=== PATIENT | female | born 1990 | race Caucasian/White ===

== ENCOUNTER 2020-06-18 12:49 | Emergency (ER) | payer BC, SELFPAY ==
[2020-06-18 13:10] VITALS: BP 134/81; PULSE 62; RESP 20; TEMP 36.6; O2SAT 97; BMI 56.7
--- NOTE | 2020-06-18 13:26 | HMH.EDUTC ---
[facility] [place] Clinical Impression: Exposure to COVID-19 virus Disposition: Home, Self-Care Condition on Discharge: Good Instructions: DI for COVID-19 (Suspected or Confirmed ), Coronavirus Disease 2019, Preventing the Spread of Coronavirus Discharge Instructions Additional Instructions: *Monitor Temp, Over the counter Motrin or Tylenol as directed/as needed Tylenol every 4 hours and Motrin every 6 hours (as long as your family doctor has told you that you can take it) for fever or pain. and straight to ER if unable to lower temp less than 101.0 after medication given *Warm salt water gargles may help to soothe the throat *Throat Lozenges *Warm fluids like tea with honey may help to soothe the throat *Sleep elevated *Humidifier/Vaporizer Follow up IMMEDIATELY for new or worsening symptoms or no Noticeable improvement over the next 48-72 hours. 911 for difficulty breathing or swallowing You were tested for today for COVID19 your test result should be back in the next 24-48 hours, you may call to the [facility] to see if your test results are back in the next 48 hours [phone] [facility] hours are 9am-9pm You was given a handout with instructions for Self Quarantine and Self isolation for while you wait on test results and what to do if they are positive If you are positive the Health Dept will be contacting you also Referrals: Maggie Garcia PA [Primary Care Provider] - As needed Forms: Work/School Release Time of Disposition: 13:29 Medical Decision Making - Dajuan Inquiry Pt receiving controlled substance: No Dajuan was queried for this patient: No Vital Signs: 06/18/20 13:10 Temperature 97.8 F Temperature Source Oral Pulse Rate [Right Brachial] 62 Respiratory Rate 20 Blood Pressure [Right Arm] 134/81 Blood Pressure Mean [Right Arm] 98 Blood Pressure Source [Right Arm] Automatic Cuff Blood Pressure Position [Right Arm] Sitting 02 Sat by Pulse Oximetry 97 Oxygen Delivery Method Room Air [facility] [place] HPI - General Stated complaint: covid test Time Seen by Provider: 06/18/20 13:26 Mode of Arrival: Ambulatory Source of Information: Patient Limitations: No Limitations Description of Symptoms (Recalled from Triage Doc. by RN): COVID TEST D/T EXPOSURE AT WORK. 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 and they called her an told her that several people that she works with has tested positive for COVID and recommended that she get tested States that she has had dry cough and mild headache but has history of headaches and it is like others she has had - Related Data Home Medications Medication Instructions Recorded Confirmed tramadol 37.5 mg-acetaminophen 325 1 tab PO DAILY PRN 11/11/18 04/27/20 mg tablet trazodone 50 mg tablet 50 mg PO DAILY 11/11/18 04/27/20 buspirone 10 mg tablet 10 mg PO tab 03/30/20 04/27/20 flu vac qs 2019(4 yr up)CD(PF) ml IM 03/30/20 04/27/20 loratadine 10 mg tablet 10 mg PO tab 03/30/20 04/27/20 rimegepant 75 mg disintegrating 75 mg PO tab 03/30/20 04/27/20 tablet topiramate 100 mg tablet 100 mg PO tab 03/30/20 04/27/20 aripiprazole 5 mg tablet 5 mg PO tab 04/27/20 04/27/20 cariprazine 3 mg capsule 3 mg PO cap 04/27/20 04/27/20 desvenlafaxine succinate 50 mg 50 mg PO tab 04/27/20 04/27/20 tablet,extended release 24 hr Previous Rx's Medication Instructions Recorded phentermine 37.5 mg capsule 37.5 mg PO DAILY #30 cap 04/27/20 Allergies Allergy/AdvReac Type Severity Reaction Status Date / Time No Known Allergies Allergy Verified 04/27/20 10:49 - Worker's Comp Is this a Worker's Comp case?: No [facility] History - Hepatitis A Screen Drug use history?: No High r
[2020-06-18 13:30] VITALS: BP 134/81; PULSE 62; RESP 20; TEMP 36.6; O2SAT 97
== END 2020-06-18 13:32 | disposition home or self-care (01) ==
PROVIDERS: Emergency Provider Nurse Practitioner; PCP Nurse Practitioner Family
DX: Z20.822 Contact with and (suspected) exposure to COVID-19 (principal); F33.1 Major depressive disorder, recurrent, moderate; Z79.899 Other long term (current) drug therapy; F17.210 Nicotine dependence, cigarettes, uncomplicated
CPT/HCPCS: 99202; G0463; U0003

== ENCOUNTER → 2022-05-02 08:08 | Outpatient (CLI) | payer OTHER, SELFPAY ==
[2022-05-02 09:40] VITALS: PULSE 76; PULSE 80
== END ==
PROVIDERS: PCP Physician Assistant; Visit Provider Physician Assistant
DX: Z01.818 Encounter for other preprocedural examination (principal)
CPT/HCPCS: 94060; 94640; 94727; 94729

== ENCOUNTER 2023-08-16 18:54 | Outpatient (CLI) | payer MEDICAID, SELFPAY ==
[2023-08-16 18:41] LABS: Chloride 107 mmol/L (98-107)
[2023-08-16 18:42] LABS: Potassium 4.3 mmoL/L (3.5-5.1); Sodium 138 mmol/L (136-145)
[2023-08-16 18:44] LABS: Alanine Aminotransferase 40 U/L (12-78); Alkaline Phosphatase 147 U/L (38-126); Anion Gap 10.3 mEq/L (5-15); Aspartate Amino Transferase 31 U/L (14-36); Bilirubin,Total 0.3 mg/dl (0.2-1.3); Blood Urea Nitrogen 15 mg/dl (7-17); Carbon Dioxide 25 mmol/L (22.0-30.0); Estimated Glomerular Filt Rate 114 ml/min (>60); GFR (African American) 138 ML/MIN (>60); HCG Qualitative, Serum Negative (Negative)
[2023-08-16 18:45] LABS: Albumin/Globulin Ratio 1.3 (1.1-1.8); Calcium 8.9 mg/dl (8.4-10.2); Chol/HDL Ratio 5.8 (1-3.5); Cholesterol 193 mg/dl (140-200); Globulin 3.2 g/dL (1.3-3.2); Glucose 98 mg/dl (74-100); HDL Cholesterol 33 mg/dl (40-60); Iron 57 ug/dL (37-170); Total Protein,Serum 7.2 g/dl (6.3-8.2); Triglycerides 209 mg/dl (30-150); VLDL Cholesterol 42 mg/dL (0-40)
[2023-08-16 18:54] LABS: NT Pro Brain Natriuretic Pep. < 20.0 pg/mL (0-125)
[2023-08-16 18:56] LABS: Direct LDL Cholesterol 111.38 mg/dL (100-129)
[2023-08-16 19:15] LABS: 25-OH Vitamin D, Total 14.3 ng/mL (30-100); Thyroid Stimulating Hormone 1.14 uIU/mL (0.465-4.68)
[2023-08-16 19:38] LABS: Basophils # 0.1 K/mm3 (0-0.2); Basophils % 0.7 % (0.1-2.0); Eosinophils # 0.1 K/mm3 (0.0-0.4); Eosinophils % 0.7 % (0.1-12.0); Hematocrit 38.6 % (37.0-47.0); Hemoglobin 12.3 g/dL (12.2-16.2); Lymphocytes # 3.1 K/mm3 (0.7-4.5); Lymphocytes % 30.1 % (10-50); Mean Corpuscular Hemoglobin 27.6 pg (27.0-31.2); Mean Corpuscular Volume 86.1 fl (81-99); Mean Platelet Volume 10.1 fl (7.4-10.4); Monocytes # 0.8 K/mm3 (0.1-1.0); Monocytes % 7.5 % (1.7-9.3); Neutrophils # 6.3 K/mm3 (1.8-7.8); Neutrophils % 61.1 % (37.0-80.0); Platelet Count 339 K/mm3 (142-424); Red Blood Count 4.48 M/mm3 (4.20-5.40); Red Cell Distribution Width 15.1 % (11.5-17.5); White Blood Count 10.3 K/mm3 (4.8-10.8)
== END 2023-08-16 23:59 ==
LOC: LAB.DROPOF 18:54
PROVIDERS: PCP Family Medicine; Visit Provider Family Medicine
DX: D50.9 Iron deficiency anemia, unspecified (principal); E55.9 Vitamin D deficiency, unspecified; R06.09 Other forms of dyspnea; G47.33 Obstructive sleep apnea (adult) (pediatric); R60.9 Edema, unspecified; E66.01 Morbid (severe) obesity due to excess calories; Z68.44 Body mass index [BMI] 60.0-69.9, adult
CPT/HCPCS: 80053; 80061; 82306; 83036; 83540; 83880; 84443; 84703; 85025

== ENCOUNTER 2023-09-10 14:21 | Outpatient (CLI) | payer MEDICAID, SELFPAY ==
--- NOTE | 2023-09-10 14:22 | CA_ITS ---
APPROVED REPORT EXAM: Comprehensive 2D, Doppler, and color-flow Echocardiogram Working Supervisor: Milagro Valdez CRT Ht: 5 ft 1 in Wt: 365lbs BSA: 2.44 BP: 132/82 mmHg Indications: Shortness of Breath, Peripheral Edema M-Mode Dimensions RVDd 2.15 cm (0.9-2.6) LA Diam 3.59 cm (1.9-4.0) LVDd 5.10 cm (3.5-5.7) LVDs 3.62 cm (3.5-5.7) IVSd 1.61 cm (0.6-1.1) PWd 0.89 cm (0.6-1.1) EF (Teich) 55.40% FS 29.00% EDV (Teich) 123.80 mL TAPSE 2.69 (<1.7) ESV (Teich) 55.20 mL LV Diastology E Decel Time 120 (160-240 msec) E/A Ratio 1.21 MED A' 11.60 cm/s LAT A' 9.90 cm/s Aortic Valve AO Peak GR. 8.90 mmHg Mitral Valve MV A Velocity 81.0 (40-130 cm/s) E/A Ratio 1.21 Pulmonary Valve PV Peak Velocity 89.0 (50-150 cm/s) Tricuspid Valve TR P. Velocity 175.00 cm/s RAP Estimate 10.00 mmHg RVSP 22.30 mmHg Left Ventricle The left ventricle is normal size. The left ventricular systolic function is normal. The left ventricular ejection fraction is within the normal range. There is increased LV wall thickness. There is normal LV segmental wall motion. The left ventricular diastolic function is normal. LVEF is 55%. Right Ventricle Right ventricle is mildly dilated. The right ventricular systolic function is normal. Atria The left atrium size is normal. The right atrium size is normal. There is no Doppler evidence of interatrial shunt. Aortic Valve The aortic valve grossly opens well. There is no aortic valvular stenosis. Trace aortic regurgitation. Mitral Valve The mitral valve is normal in structure. No evidence of mitral valve stenosis. There is no mitral valve regurgitation noted. Tricuspid Valve The tricuspid valve leaflets are thin and pliable. Trace tricuspid regurgitation. Pulmonic Valve The pulmonary valve is normal in structure. Mild pulmonic regurgitation. Great Vessels The aortic root is not well visualized. The IVC is not well visualized. Pericardium There is no pericardial effusion. Other Information Study Quality: Fair Conclusion Normal biventricular systolic function. Mild RV dilation. Mild PA. Electronically signed by : [place] MD 09/14/2023 16:04:32
== END 2023-09-10 23:59 ==
LOC: RT 14:22
PROVIDERS: PCP Physician Assistant; Visit Provider Family Medicine
DX: R06.09 Other forms of dyspnea (principal); R60.9 Edema, unspecified; G47.33 Obstructive sleep apnea (adult) (pediatric); E66.01 Morbid (severe) obesity due to excess calories; Z68.44 Body mass index [BMI] 60.0-69.9, adult
CPT/HCPCS: 93306

== ENCOUNTER 2024-06-24 20:41 | Emergency (ER) | payer MEDICAID, SELFPAY ==
[2024-06-24 20:52] VITALS: BP 153/90; PULSE 107; RESP 20; TEMP 36.7; O2SAT 99; BMI 70.8
--- NOTE | 2024-06-24 20:55 | PC.NURSE ---
Pt awake alert and oriented x3 Skin pink warm and dry Resp full and easy Inspiratory and expiratory wheezes auscultated throughout posterior lung goldberg. Speech clear and appropriate. Report given to Mireille
--- NOTE | 2024-06-24 20:58 | XR_ITS ---
PROCEDURE INFORMATION: Exam: XR Chest Exam date and time: 06/24/2024 9:37 PM Age: 34 years old Clinical indication: Shortness of breath; Additional info: SOB TECHNIQUE: Imaging protocol: Radiologic exam of the chest. Views: 2 views. COMPARISON: CR Chest 06/24/2024 9:37 PM FINDINGS: Lungs: Mildly increased central interstitial lung markings. Pleural spaces: No pleural effusion. No pneumothorax. Heart/Mediastinum: No cardiomegaly. Right hilar prominence. Bones/joints: Unremarkable. IMPRESSION: 1. Mildly increased central interstitial lung markings, which can be seen with pulmonary edema or infection in the acute setting. 2. Right hilar prominence joint represent enlarged pulmonary vasculature or adenopathy.
--- NOTE | 2024-06-24 21:06 | ED_ITS ---
Discharge Plan Disposition Patient Disposition: Home, Self-Care Condition: Good Prescriptions Prescriptions: New doxycycline hyclate 100 mg tablet 100 mg PO BID 7 Days Qty: 14 0RF albuterol sulfate 90 mcg/actuation HFA aerosol inhaler 2 inh inhalation Q4H PRN (Reason: shortness of breath or wheezing) Qty: 8.5 0RF prednisone 20 mg tablet 20 mg PO DAILY 5 Days Qty: 5 0RF No Action albuterol sulfate [Ventolin HFA] 90 mcg/actuation HFA aerosol inhaler inhalation Patient Comments: INHALE 1 PUFF BY MOUTH EVERY 6 HOURS NEEDED FOR SHORTNESS OF BREATH FOR WHEEZING furosemide [Lasix] 20 mg tablet 20 mg PO DAILY Qty: 30 2RF hydrochlorothiazide 25 mg tablet 25 mg PO DAILY Qty: 30 2RF medroxyprogesterone [Provera] 10 mg tablet 10 mg PO DAILY Qty: 14 11RF Rx Instructions: Take tablet daily for the first 14 days of each month. ergocalciferol (vitamin D2) 1,250 mcg (50,000 unit) capsule 1,250 mcg PO WEEKLY Qty: 14 3RF cholecalciferol (vitamin D3) 25 mcg (1,000 unit) capsule 25 mcg PO DAILY Qty: 30 2RF Referrals Follow up/Referrals: Nasreen Chatman PA [Primary Care Provider] - See instructions Activity Restrictions/Add. Instructions Additional Instructions/Restrictions: Follow-up with your primary care physician early next week if symptoms do not improve. Take the antibiotics as prescribed for pneumonia. If you develop any new or worsening symptoms, or if you become concerned for your health for any reason, return to the emergency department for evaluation. Clinical Impressions Clinical Impression: Shortness of breath, Pneumonia Instructions Patient Instructions: Pneumonia--Adult Print Language Print Language: Burmese Discharge ED Provider: Tony Hobson General Adult HPI General Chief complaint: Upper Respiratory Infection Stated complaint: wheezing, franklin, SOA Time Seen by Provider: 06/24/24 20:52 Mode of Arrival: Ambulatory Source of Information: Patient Limitations: No Limitations Description of Symptoms (Recalled from ER Triage Doc. by RN): Pt states she has had cough shortness of breath today History of Present Illness HPI narrative: Natacha Morales is a 34-year-old female with a past medical history of obstructive sleep apnea, bipolar depression, morbid obesity who presents to the emergency department for complaints of shortness of breath. She states that yesterday, she felt short of breath more with exertion. Her shortness of breath improves with laying down. She states that she feels like she has some crackling when she breathes and is worried she might have a pneumonia. She reports objective fever yesterday but has not taken her temperature. She reports a mild cough but denies any history of leg swelling or blood clot. She states that she was going to be seen at an urgent treatment center but they instructed her to come to the emergency department. She reports some mild back pain but denies any chest pain, abdominal pain, nausea or vomiting Related Data Home Medications ?Medication ?Instructions ?Recorded ?Confirmed albuterol sulfate 90 mcg/actuation inhalation 09/16/23 12/03/23 aerosol inhaler (Ventolin HFA) Previous Rx's ?Medication ?Instructions ?Recorded hydrochlorothiazide 25 mg tablet 25 mg PO DAILY #30 tabs 08/16/23 cholecalciferol (vitamin D3) 25 25 mcg PO DAILY #30 caps 08/19/23 mcg (1,000 unit) capsule ergocalciferol (vitamin D2) 1,250 1,250 mcg PO WEEKLY #14 caps 08/19/23 mcg (50,000 unit) capsule furosemide 20 mg tablet (Lasix) 20 mg PO DAILY #30 tabs 09/16/23 medroxyprogesterone 10 mg tablet 10 mg PO DAILY #14 tabs 12/03/23 (Provera) albuterol sulfate 90 mcg/actuation 2 inh inhalation Q4H PRN shortness 06/24/24 aerosol inhaler of breath or wheezing #8.5 grams doxycycline hyclate 100 mg tablet 100 mg PO BID 7 days #14 tabs 06/24/24 prednisone 20 mg tablet 20 mg PO DAILY 5 days #5 tabs 06/24/24 Allergies Allergy/AdvReac Type Severity Reaction Status Date / Time No Known Allergies Allergy Verified 12/03/23 14:32 [facility] Disclaimer: The information contained in this section may have been updated after the patient was seen, as this information can be updated by other users. Medical History Bipolar depression Pseudoprogression of neoplasm Edema Morbid obesity Surgical History History of dilation and curettage History of appendectomy History of cholecystectomy History of Family History Son Adopted Father Alcoholism Mother Anemia Diabetes FHx: mental illness Hypertension Brother Asthma Diabetes FHx: mental illness Grandmother Cancer Diabetes Grandfather Cancer Kidney disease Daughter FHx: mental illness Social History Smoking Status: Current every day smoker tobacco type: cigarettes packs per day: 1 alcohol intake: current alcohol intake frequency: holidays/special occasions only substance use type: marijuana current occupational status: other Travel in the last 8 weeks: None Have you lived/traveled outside [place] in past 30 days?: No Contact w/someone who lives/traveled outside [place] past 30 days?: No Exposure to someone with infectious disease in past 14 days?: No Do you have a fever (greater than 100.4 F or 38 C)?: No Have you tested positive for COVID-19: No Exposed to someone with COVID-19 in past 14 days?: No Do you have a sore throat?: No Do you have a cough?: Yes Do you have any weakness?: No Do you have any diarrhea?: No Are you experiencing any unusual bleeding?: No Do you have any muscle aches/pain?: No Do you have any abdominal pain?: No Are you experiencing loss of taste or smell?: No Other Medical History Have you received the Pneumonia Vaccine: No ROS Obtained: Yes Systems reviewed as appropriate & no additional complaints except as documented Physical Exam General General appearance: alert, in no apparent distress and obese Head Head exam: atraumatic Eye Eye exam: Present normal appearance ENT ENT exam: Present normal external ear exam Neck Neck exam: Present full ROM Chest Chest inspection: Present symmetric chest wall rise Respiratory Respiratory exam: Present normal lung sounds bilaterally, wheezes (end expiratory) and other (few scattered crackles); Absent respiratory distress Cardiovascular Cardiovascular exam: Present regular rate and normal rhythm Abdominal Exam Abdominal exam: Present soft; Absent tenderness or guarding Extremities Exam Extremities exam: Present normal inspection Back Exam Back exam: Present normal inspection Neurological Exam Neurological exam: Present alert and oriented X3 Psychiatric Psychiatric exam: Present normal affect Skin Skin exam: Present warm and dry Medical Decision Making Medical Records Screening: Per USPSTF and CDC recommendations, given the prevalence of disease in our region, it is our hospital?s policy to screen for HIV and viral Hepatitis for all patients aged 18 and over and those with ongoing risk factors. Dajuan Inquiry Pt receiving controlled substance: No Vital Signs: 06/24/24 20:52 06/24/24 21:42 06/24/24 22:00 Temperature 98.0 F Temperature Source Oral Pulse Rate 110 H 99 H Pulse Rate [Right Brachial] 107 H Respiratory Rate 20 Blood Pressure 171/88 H 129/69 Blood Pressure [Right Arm] 153/90 H Blood Pressure Mean [Right Arm] 111 Blood Pressure Source Blood Pressure Source [Right Arm] Automatic Cuff Blood Pressure Position Blood Pressure Position [Right Arm] Sitting 02 Sat by Pulse Oximetry 99 96 94 L Oxygen Delivery Method Room Air 06/24/24 22:30 06/24/24 23:19 Temperature 98.0 F Temperature Source Oral Pulse Rate 99 H 90 Pulse Rate [Right Brachial] Respiratory Rate 20 Blood Pressure 152/90 H 171/90 H Blood Pressure [Right Arm] Blood Pressure Mean [Right Arm] Blood Pressure Source Automatic Cuff Blood Pressure Source [Right Arm] Blood Pressure Position Sitting Blood Pressure Position [Right Arm] 02 Sat by Pulse Oximetry 99 Oxygen Delivery Method Room Air Lab Data Lab Results 06/24/24 20:50: WBC 10.2, RBC 4.74, Hgb 12.6, Hct 39.7, MCV 83.8, MCH 26.6 L, M CHC 31.7 L, RDW 14.6, Plt Count 341, MPV 10.6 H, Neut % (Auto) 60.3, Lymph % (Auto) 32.9, [place] % (Auto) 4.5, Eos % (Auto) 1.7, Baso % (Auto) 0.3, Neut # (Auto) 6.2, Lymph # (Auto) 3.4, [place] # (Auto) 0.5, Eos # (Auto) 0.2, Baso # (Auto) 0.0, Sodium 139, Potassium 3.9, Chloride 104, Carbon Dioxide 25, Anion Gap 13.9, BUN 15, Creatinine 0.70, Estimated Creat Clear 85, Estimated GFR 95, Est GFR ( Amer) 115, Glucose 198 H, Calcium 8.6, Total Bilirubin 0.4, AST 41 H, ALT 50, Alkaline Phosphatase 128 H, Troponin I < 0.01, NT-Pro-B Natriuret Pep < 20.0, Total Protein 7.9, Albumin 4.2, Globulin 3.7 H, Albumin/Globulin Ratio 1.1, HCV Ab RHONDA w/Rflx PCR Qn Negative, HIV Ag/Ab Combo Qual Negative 06/24/24 21:10: Urine HCG, Qual Negative 06/24/24 21:29: SARS-CoV-2 (PCR) Not detected, Influenza A Untype (PCR) Not detected, Influenza Type B (PCR) Not detected 06/24/24 21:34: D-Dimer 0.40 06/24/24 20:50 06/24/24 20:50 Orders (Tests/Meds): ED MEDICATIONS Discontinued Medications Generic Name Dose Route Start Last Admin Trade Name Freq PRN Reason Stop Dose Admin Albuterol/Ipratropium 3 ml 06/24/24 20:58 06/24/24 21:12 Ipratropium/Albuterol 3 Ml Neb IH 06/24/24 20:59 3 ml ONCE ONE Administration ORDERS Category Date Time Status CXR 2 view (NOT portable) [XR chest 2V] Stat Exams 06/24/24 20:58 Completed BNP [NT Pro Brain Natriuretic Pep.] Stat Lab 06/24/24 20:50 Completed CBC w/Auto Diff [Complete Blood Count Auto Diff] Stat Lab 06/24/24 20:50 Completed CMP [Comprehensive Metabolic Panel] Stat Lab 06/24/24 20:50 Completed D-Dimer Stat Lab 06/24/24 21:34 Completed HIV Combo Routine Lab 06/24/24 20:50 Completed Hepatitis C Ab Qual. W/ RFX Routine Lab 06/24/24 20:50 Completed Rapid PCR Covid and Flu A/B Stat Lab 06/24/24 21:29 Completed Troponin I Stat Lab 06/24/24 20:50 Completed Urine , HCG Qual. Stat Lab 06/24/24 21:10 Completed ECG Data Tracing #1: I reviewed this ECG and interpreted as documented below: EKG interpreted by me at 2127. Sinus tachycardia with a ventricular rate of [address] elevations or depressions. T wave inversions in lead III but otherwise no significant T wave abnormalities. QTc normal at 395. VA interval normal at 141 Medical Decision Narrative: Natacha Morales is a 34F with a past medical history of bipolar depression, morbid obesity, dyspnea, CATHLEEN, and uses a vape who presents to the ED for complaints of shortness of breath for one day. Patient states that she has noticed crackles when she breathes and feels slightly more short of breath than normal, especially with exertion, but improved with lying flat. She states that this has never happened before. She also reports a mild pain in her back and is worries she might have pneumonia. On arrival, patient is hypertensive, afebrile, mildly tachtycardic, breathing comfortably on room air with SpO2 at 99%, and speaking in full sentences. On exam, she has some mild end-expiratory wheezing bilaterally and a few scattered crackles. Cardiac exam is unremarkable except for tachycardia. Differential diagnosis includes but is not limited to: pneumonia, pulmonary embolism, asthma/COPD, bronchospasms, viral respriatory illness, bronchitis, ACS, among others. Workup in the ED included: CBC with diff, CMP, troponin, BNP, D-dimer, 2 view CXR, EKG, Rapid COVID/flu swab. Patient was given a duoneb nebulizer treatment. Patient's workup showed no leukocytosis, no anemia, D-dimer negative at 0.4, CMP unremarkable and non-actionable, troponin <0.01, BNP <20, COVID/Flu negative. CXR interpreted by me personally demonstrated possible increased interstitial lung markings, possibly edema, possible infectious. See radiology report for final details. On reassment, patient states that she feels better after the duoneb treatment. She has remained comfortable and not hypoxic. Given her symptoms and CXR, will treat her with CAP with doxycycline, prednisone, and will provide her with an albuterol inhaler for symptomatic relief. She was encouraged to follow up with her PCP if symptoms do not improve or, if they worsen, to return to the ED for evaluation. All questions were answered. She was in agreement with this plan. She was then discharged from the emergency department in stable condition. Critical Care Critical Care Time Critical Care Time: No
[2024-06-24 21:07] LABS: Basophils % 0.3 % (0.1-2.0); Eosinophils # 0.2 K/mm3 (0.0-0.4); Eosinophils % 1.7 % (0.1-12.0); Hematocrit 39.7 % (37.0-47.0); Hemoglobin 12.6 g/dL (12.2-16.2); Lymphocytes # 3.4 K/mm3 (0.7-4.5); Lymphocytes % 32.9 % (10-50); Mean Corpuscular HGB Conc 31.7 g/dL (31.8-35.4); Mean Corpuscular Hemoglobin 26.6 pg (27.0-31.2); Mean Corpuscular Volume 83.8 fl (81-99); Mean Platelet Volume 10.6 fl (7.4-10.4); Monocytes # 0.5 K/mm3 (0.1-1.0); Monocytes % 4.5 % (1.7-9.3); Neutrophils # 6.2 K/mm3 (1.8-7.8); Neutrophils % 60.3 % (37.0-80.0); Platelet Count 341 K/mm3 (142-424); Red Blood Count 4.74 M/mm3 (4.20-5.40); Red Cell Distribution Width 14.6 % (11.5-17.5); White Blood Count 10.2 K/mm3 (4.8-10.8)
[2024-06-24] MEDS: IPRATROPIUM/ALBUTEROL 3 ML NEB IH (21:12)
--- NOTE | 2024-06-24 21:13 | PC.NURSE ---
Resp at bedside breathing treament in process
[2024-06-24 21:17] LABS: Albumin Level 4.2 g/dl (3.5-5.0); Chloride 104 mmol/L (98-107); Potassium 3.9 mmoL/L (3.5-5.1); Sodium 139 mmol/L (136-145)
[2024-06-24 21:19] LABS: Blood Urea Nitrogen 15 mg/dl (7-17); Creatinine Clearance Estimated 85 mL/min (50-200); Estimated Glomerular Filt Rate 95 ml/min (>60); GFR (African American) 115 ML/MIN (>60)
[2024-06-24 21:20] LABS: Alanine Aminotransferase 50 U/L (12-78); Albumin/Globulin Ratio 1.1 (1.1-1.8); Alkaline Phosphatase 128 U/L (38-126); Anion Gap 13.9 mEq/L (5-15); Aspartate Amino Transferase 41 U/L (14-36); Bilirubin,Total 0.4 mg/dl (0.2-1.3); Calcium 8.6 mg/dl (8.4-10.2); Carbon Dioxide 25 mmol/L (22.0-30.0); Globulin 3.7 g/dL (1.3-3.2); Glucose 198 mg/dl (74-100); Total Protein,Serum 7.9 g/dl (6.3-8.2)
--- NOTE | 2024-06-24 21:23 | ECG_ITS ---
APPROVED REPORT Exam: Resting ECG HR:102 bpm ECG Measurements Heart Rate 102 AXES WA 141 P 48 QRSd 92 QRS 45 QT 336 T -15 QTc 395 Conclusion SINUS TACHYCARDIA NONSPECIFIC ST & T-WAVE ABNORMALITY ABNORMAL RHYTHM ECG UNCONFIRMED REPORT Electronically signed by : MONTSERRAT CAST, 06/27/2024 00:46:48
[2024-06-24 21:29] LABS: NT Pro Brain Natriuretic Pep. < 20.0 pg/mL (0-125)
[2024-06-24 21:32] LABS: Coronavirus 19, PCR Not Detected (NotDetected); Influenza A, PCR Not Detected (NotDetected); Influenza B, PCR Not Detected (NotDetected)
[2024-06-24 21:37] LABS: Troponin I < 0.01 ng/ml (0.00-0.034)
[2024-06-24 21:42] VITALS: BP 171/88; PULSE 110; O2SAT 96
[2024-06-24 21:45] LABS: Urine Pregnancy, HCG Qual. Negative (Negative)
[2024-06-24 22:00] VITALS: BP 129/69; PULSE 99; O2SAT 94
[2024-06-24 22:03] LABS: HIV Combo NEGATIVE (Negative)
[2024-06-24 22:11] LABS: Hepatitis C Ab Qual. W/ RFX NEGATIVE (Negative)
[2024-06-24 22:30] VITALS: BP 152/90; PULSE 99; O2SAT 99
[2024-06-24 23:19] VITALS: BP 171/90; PULSE 90; RESP 20; TEMP 36.7; O2SAT 95
== END 2024-06-24 23:25 | disposition home or self-care (01) ==
PROVIDERS: Emergency Provider Student in an Organized Health Care Education/Training Program; PCP Physician Assistant
DX: J18.9 Pneumonia, unspecified organism (principal); R06.02 Shortness of breath; R09.81 Nasal congestion; R06.2 Wheezing; R50.9 Fever, unspecified; R05.9 Cough, unspecified; M54.9 Dorsalgia, unspecified; F17.210 Nicotine dependence, cigarettes, uncomplicated
CPT/HCPCS: 36415; 71046; 80053; 81025; 83880; 84484; 85025; 85378; 86803; 87389; 87636; 93005; 99284; J7620

== ENCOUNTER 2024-10-16 23:45 | Emergency (ER) | payer MEDICAID, SELFPAY ==
--- NOTE | 2024-10-16 23:49 | HMH.EDGENADL ---
Discharge Plan Disposition Patient Disposition: Home, Self-Care Prescriptions Prescriptions: No Action albuterol sulfate [Ventolin HFA] 90 mcg/actuation HFA aerosol inhaler inhalation Patient Comments: INHALE 1 PUFF BY MOUTH EVERY 6 HOURS NEEDED FOR SHORTNESS OF BREATH FOR WHEEZING furosemide [Lasix] 20 mg tablet 20 mg PO DAILY Qty: 30 2RF hydrochlorothiazide 25 mg tablet 25 mg PO DAILY Qty: 30 2RF medroxyprogesterone [Provera] 10 mg tablet 10 mg PO DAILY Qty: 14 11RF Rx Instructions: Take tablet daily for the first 14 days of each month. ergocalciferol (vitamin D2) 1,250 mcg (50,000 unit) capsule 1,250 mcg PO WEEKLY Qty: 14 3RF cholecalciferol (vitamin D3) 25 mcg (1,000 unit) capsule 25 mcg PO DAILY Qty: 30 2RF doxycycline hyclate 100 mg tablet 100 mg PO BID 7 Days Qty: 14 0RF albuterol sulfate 90 mcg/actuation HFA aerosol inhaler 2 inh inhalation Q4H PRN (Reason: shortness of breath or wheezing) Qty: 8.5 0RF prednisone 20 mg tablet 20 mg PO DAILY 5 Days Qty: 5 0RF Referrals Follow up/Referrals: Nasreen Chatman PA [Primary Care Provider] - See instructions Activity Restrictions/Add. Instructions Additional Instructions/Restrictions: Please follow-up with your primary care provider. Please return to the emergency department if you develop any new or worsening symptoms or become concerned for your health. Please take Tylenol and ibuprofen as needed for pain. Clinical Impressions Clinical Impression: Acute pain of left knee Print Language Print Language: Togolese Discharge ED Provider: Boby Miller General Adult HPI General Chief complaint: Extremity Injury, Lower Stated complaint: left leg knee cap pain fever Time Seen by Provider: 10/16/24 23:49 History of Present Illness HPI narrative: 34-year-old female with history of morbid obesity presents for left knee pain. She reports is been ongoing for about a week. She has been seen at another facility and by her family physician and got x-rays that were negative. She also has a follow-up with Ortho scheduled for next week. Her pain has been getting worse. She noted that she had an elevated temperature today of 100.1. No temperatures over 100.4 though. She has been having difficulty getting around and as a result has peed on herself a few times today. She took some ibuprofen for pain prior to arrival. She denies any obvious external changes to the knee. It does not hurt at baseline but does hurt with movement. Feels like it glenn. She denies any trauma to the knee or an obvious inciting incident. Related Data Home Medications ?Medication ?Instructions ?Recorded ?Confirmed albuterol sulfate 90 mcg/actuation inhalation 09/16/23 12/03/23 aerosol inhaler (Ventolin HFA) Previous Rx's ?Medication ?Instructions ?Recorded hydrochlorothiazide 25 mg tablet 25 mg PO DAILY #30 tabs 08/16/23 cholecalciferol (vitamin D3) 25 25 mcg PO DAILY #30 caps 08/19/23 mcg (1,000 unit) capsule ergocalciferol (vitamin D2) 1,250 1,250 mcg PO WEEKLY #14 caps 08/19/23 mcg (50,000 unit) capsule furosemide 20 mg tablet (Lasix) 20 mg PO DAILY #30 tabs 09/16/23 medroxyprogesterone 10 mg tablet 10 mg PO DAILY #14 tabs 12/03/23 (Provera) albuterol sulfate 90 mcg/actuation 2 inh inhalation Q4H PRN shortness 06/24/24 aerosol inhaler of breath or wheezing #8.5 grams doxycycline hyclate 100 mg tablet 100 mg PO BID 7 days #14 tabs 06/24/24 prednisone 20 mg tablet 20 mg PO DAILY 5 days #5 tabs 06/24/24 Allergies Allergy/AdvReac Type Severity Reaction Status Date / Time No Known Allergies Allergy Verified 12/03/23 14:32 [facility] Disclaimer: The information contained in this section may have been updated after the patient was seen, as this information can be updated by other users. Medical History Bipolar depression Pseudoprogression of neoplasm Edema Morbid obesity Surgical History History of dilation and curettage History of appendectomy History of cholecystectomy History of Family History Son Adopted Father Alcoholism Mother Anemia Diabetes FHx: mental illness Hypertension Brother Asthma Diabetes FHx: mental illness Grandmother Cancer Diabetes Grandfather Cancer Kidney disease Daughter FHx: mental illness Social History Smoking Status: Current every day smoker tobacco type: cigarettes packs per day: 1 alcohol intake: current alcohol intake frequency: holidays/special occasions only substance use type: marijuana current occupational status: other Travel in the last 8 weeks?: None Have you lived/traveled outside [place] in past 30 days?: No Contact w/someone who lives/traveled outside [place] past 30 days?: No Exposure to someone with infectious disease in past 14 days?: No Do you have a fever (greater than 100.4 F or 38 C)?: Yes Have you tested positive for COVID-19?: No Exposed to someone with COVID-19 in past 14 days?: No Do you have a sore throat?: No Do you have a cough?: No Do you have any weakness?: No Do you have any diarrhea?: No Are you experiencing any unusual bleeding?: No Do you have any muscle aches/pain?: Yes Do you have any abdominal pain?: No Are you experiencing loss of taste or smell?: No Other Medical History Have you received the Pneumonia Vaccine: No ROS Obtained: Yes All systems reviewed & no additional complaints except as documented Physical Exam General General appearance: alert, in no apparent distress and obese Head Head exam: atraumatic and normocephalic Eye Eye exam: Present normal appearance, PERRL and EOMI ENT ENT exam: Present normal oropharynx and normal external ear exam Neck Neck exam: Present normal inspection and full ROM Chest Chest inspection: Present normal inspection and symmetric chest wall rise; Absent tenderness Respiratory Respiratory exam: Present normal lung sounds bilaterally; Absent respiratory distress Cardiovascular Cardiovascular exam: Present regular rate and normal rhythm Abdominal Exam Abdominal exam: Present soft; Absent distention, tenderness or guarding Extremities Exam Extremities exam: Present normal inspection (No erythema of the knee. Given her obesity, it is difficult to determine whether she has any swelling of the knee. No tenderness palpation. No obvious ligamentous laxity.) Back Exam Back exam: Present normal inspection; Absent tenderness Neurological Exam Neurological exam: Present alert and oriented X3; Absent motor sensory deficit Psychiatric Psychiatric exam: Present normal affect and normal mood Skin Skin exam: Present warm, dry and normal color Lymphatic Lymphatic Findings: no adenopathy Medical Decision Making Medical Records Medical records reviewed: Yes I reviewed the patient's medical records. Screening: Per USPSTF and CDC recommendations, given the prevalence of disease in our region, it is our hospital?s policy to screen for HIV and viral Hepatitis for all patients aged 18 and over and those with ongoing risk factors. Dajuan Inquiry Pt receiving controlled substance: No Dajuan was queried for this patient: No Vital Signs: 10/17/24 00:01 10/17/24 00:12 10/17/24 01:50 Temperature 98.8 F 98.9 F 97.4 F L Temperature Source Oral Oral Pulse Rate 83 88 Pulse Rate [Right Radial] 87 Respiratory Rate 16 20 18 Blood Pressure 152/87 H 149/87 H Blood Pressure [Right Arm] 152/87 H Blood Pressure Mean [Right Arm] 108 Blood Pressure Source Automatic Cuff Blood Pressure Source [Right Arm] Automatic Cuff Blood Pressure Position [Right Arm] Supine 02 Sat by Pulse Oximetry 98 98 Oxygen Delivery Method Room Air Room Air Lab Data Lab results reviewed: Yes I reviewed the patient's lab results. Lab Results 10/17/24 00:10: Urine Color Yellow, Urine Appearance Clear, Urine pH 6.0, Ur Specific [place] 1.025, Urine Protein Negative, Urine Glucose (UA) Negative, Urine Ketones Negative, Urine Blood 2+ A, Urine Nitrate Negative, Urine Bilirubin Negative, Urine Urobilinogen 0.2, Ur Leukocyte Esterase Negative, Urine RBC 3-5, Urine WBC 3-5, Ur Squamous Epith Cells 10-20, Amorphous Sediment 1+, Urine Bacteria 1+, Urine Mucus 1+ 10/17/24 00:19: WBC 8.6, RBC 4.28, Hgb 11.4 L, Hct 35.1 L, MCV 82.0, MCH 26.6 L, MCHC 32.5, RDW 15.2, Plt Count 278, MPV 10.0, Neut % (Auto) 71.1, Lymph % (Auto) 22.1, [place] % (Auto) 6.3, Eos % (Auto) 0.2, Baso % (Auto) 0.1, Neut # (Auto) 6.1, Lymph # (Auto) 1.9, [place] # (Auto) 0.5, Eos # (Auto) 0.0, Baso # (Auto) 0.0, ESR 56 H, Sodium 135 L, Potassium 3.9, Chloride 104, Carbon Dioxide 27, Anion Gap 7.9, BUN 17, Creatinine 0.80, Estimated Creat Clear 74, Estimated GFR 82, Est GFR ( Amer) 99, Glucose 126 H, Calcium 9.3, Total Bilirubin 0.5, AST 31, ALT 54, Alkaline Phosphatase 140 H, C-Reactive Protein 48.7 H, Total Protein 7.8, Albumin 3.9, Globulin 3.9 H, Albumin/Globulin Ratio 1.0 L 10/17/24 00:19 10/17/24 00:19 Orders (Tests/Meds): ED MEDICATIONS Discontinued Medications Generic Name Dose Route Start Last Admin Trade Name Freq PRN Reason Stop Dose Admin Acetaminophen 1,000 mg 10/17/24 00:10 10/17/24 00:28 Acetaminophen 500mg Tab PO 10/17/24 00:11 1,000 mg ONCE ONE Administration ORDERS Category Date Time Status Knee XR left 3 views [XR knee LT 3V] Stat Exams 10/17/24 00:10 Completed CBC w/Auto Diff [Complete Blood Count Auto Diff] Stat Lab 10/17/24 00:19 Completed CMP [Comprehensive Metabolic Panel] Stat Lab 10/17/24 00:19 Completed CRP [C-Reactive Protein] Stat Lab 10/17/24 00:19 Completed ESR [Erythrocyte Sedimentation Rate] Stat Lab 10/17/24 00:19 Completed UA [Urinalysis and Microscopic] Stat Lab 10/17/24 00:10 Completed Uric Acid Stat Lab 10/17/24 00:19 Received Medical Decision Narrative: 34-year-old female with history of morbid obesity presents for atraumatic left knee pain worsening over the last week, reports having a temperature of 100.1 at home earlier today.. History was obtained via interactive discussion with patient, chart review. On arrival, patient is [afebrile, hemodynamically stable, satting appropriately, alert, oriented x4, GCS 15], moving all extremities spontaneously. Full physical exam performed and significant for no obvious knee swelling, no erythema of the skin, no ligamentous laxity. Differential includes but is not limited to ligamentous/meniscus injury, fracture, dislocation, gout, septic arthritis. Concern for joint infection is very low given patient has no external signs of infection and did not have a true fever. However, given atraumatic pain that is worsening and elevated temperature without other source, we will perform blood work to assess inflammatory markers. Radiographs and urinalysis ordered. Patient was given Tylenol for symptomatic management and correction of underlying abnormalities. On re-evaluation, patient [remains afebrile, HD stable.] Laboratory workup independently interpreted by me and significant for no leukocytosis. ESR and CRP are mildly elevated. Imaging independently interpreted by me and significant for no evidence of fracture, no evidence of large joint effusion. See radiology read for full review of final results. Joint aspiration was considered, but deemed unnecessary due to no true fever, no white count, no physical exam signs of infection.. Given patient history, exam and workup, patient's presentation most likely represents musculoskeletal knee pain. Interactive case was had with patient regarding her presentation. We discussed the possibility of joint aspiration but ultimately decided that the risks outweigh the benefit at this time given the concern for joint infection is so low. She has a Ortho follow-up scheduled for Saturday. She is discharged in stable condition with return precautions. Procedures Risk/Benefits of Procedure(s) Were Explained: Yes Critical Care Critical Care Time Critical Care Time: No
[2024-10-17 00:01] VITALS: BP 152/87; PULSE 87; RESP 16; TEMP 37.1; O2SAT 98; BMI 75.5
--- OUTSIDE RECORDS SUMMARY | 2024-10-17 00:06 | XMS_ITS | Continuity of Care Document ---
[facility] Organization [facility] Care Team Providers Care Size Marker Name Role Phone Cole ANGEL Primary Attending Cole ANGEL Admitting Cole ANGEL Primary Care Cole ANGEL Unavailable ALLERGIES AND ADVERSE REACTIONS RESULTS MEDICATIONS SOCIAL HISTORY HEALTH CONCERNS ENCOUNTERS CARE TEAM
--- OUTSIDE RECORDS SUMMARY | 2024-10-17 00:06 | XMS_ITS | Data Portability ---
Author Organization [facility] & [facility] ADMIN Address [address] [place] [id number] Assessment No assessment recorded. Plan of Treatment Reminders Order Date Submit Date Provider Last Modified By Organization Details Last Modified Time Details Appointments None recorded. Lab influenza virus A + B + SARS-CoV-2 (COVID19) Ag panel, rapid IA, upper respiratory specimen [address], [address] [place], [address], 3 11:37:47 influenza virus A + B and SARS CoV 2 (COVID-19) and RSV RNA panel, KEVIN+probe, respiratory specimen [address], [address] [place], [address], 3 11:37:48 CBC w/ auto diff 2021 022 Not available 3 11:19:44 CMP, serum or plasma 2021 022 Not available 3 11:19:45 HbA1c (hemoglobin A1c), blood 2021 022 Not available 3 11:19:45 lipid panel, blood 2021 022 Not available 3 11:19:45 TSH, serum or plasma 2021 022 [email or web address] Not available 11:19:45 iron + TIBC + ferritin, serum 2021 022 [email or web address] Not available 11:19:45 folate, qual, blood 2021 022 [email or web address] Not available 11:19:46 folate, serum 2021 022 Not available 11:19:46 mma (methylmalo osiris acid), serum 2021 [email or web address] Not available 11:19:46 vitamin B1 (thiamine), blood 2021 022 [email or web address] Not available 11:19:46 vitamin D, 25-hydroxy, total, serum 2021 Not available 11:19:46 vitamin A (retinol), serum 2021 022 [email or web address] Not available 11:19:46 vitamin E, serum 2021 022 [email or web address] Not available 11:19:47 PTH (parathyroi d hormone), intact, serum or plasma 2021 [email or web address] Not available 11:19:47 Referral None recorded. Procedures None recorded. Surgeries None recorded. Imaging XR, chest, 2 view 2021 022 [email or web address] Not available 16:33:25 electrocard iogram, routine ECG, 12 leads min 2021 [email or web address] Not available 09:20:01 Medication Orders erythromyci n 5 mg/gram (0.5 %) eye ointment 2022 023 [facility] [address] [place], [address], 09:25:24 Patient TargetsNo targets recorded. Patient InstructionsNo instructions recorded. Reason for Referral None Reported. Results Created Date Observation Date Name Description Value Unit Range Abnormal Flag Note LastModifiedBy Organization Detail LastModifiedTime 05/23/20 22 05/24/[address] (H PYLOR I AB QUAL) rod test 20 min NEGATI VE negati ve Not Available [facility] ([facility]) [address] [facility], [place], [address], 05/24/2022 10:14:24 05/23/20 22 05/24/[address] (H PYLOR I AB QUAL) rod test 1HR NEGATI VE negati ve Not Available [facility] ([facility]) [address] [facility], [place], [address], 05/24/2022 10:14:24 05/23/20 22 05/24/[address] (H PYLOR I AB QUAL) rod test 3 HR NEGATI VE negati ve Not Available [facility] ([facility]) [address] [facility], [place], [address], 05/24/2022 10:14:24 05/23/20 22 05/24/[address] (H PYLOR I AB QUAL) rdo test 24 HR NEGATI VE negati ve Not Available [facility] ([facility]) [address] [facility], [place], [address], 05/24/2022 10:14:24 05/23/20 22 05/24/[address] (H PYLOR I AB QUAL) rod test kit lot# [id number] 5 Not Available [facility] ([facility]) [address] [facility], [place], [address], 05/24/2022 10:14:24 05/23/20 22 05/24/[address] (H PYLOR I AB QUAL) rod test kit exp date 2022 Not Available [facility] ([facility]) [address], [place], [address], 05/24/2022 10:14:24 02/02/20 23 02/01/2023 influ allyssa virus A + B and SARS CoV 2 (COVI D-19) and RSV RNA panel , KEVIN+p robe, respi rator y speci men FLU A negati ve Not Available [address] [place], [address], 02/01/2023 11:37:09 02/02/20 23 02/01/2023 influ allyssa virus A + B and SARS CoV 2 (COVI D-19) and RSV RNA panel , KEVIN+p robe, respi rator y speci men FLU B negati ve Not Available [address] [place], [address], 02/01/2023 11:37:09 02/02/20 23 02/01/2023 influ allyssa virus A + B and SARS CoV 2 (COVI D-19) and RSV RNA panel , KEVIN+p robe, respi rator y speci men SARS-CoV-2 negati ve Not Available [address] [place], [address], 02/01/2023 11:37:09 02/02/20 23 02/01/2023 influ allyssa virus A + B and SARS CoV 2 (COVI D-19) and RSV RNA panel , KEVIN+p robe, respi rator y speci men RSV negati ve Not Available [address] [place], [address], 02/01/2023 11:37:09 02/02/20 23 02/01/2023 influ allyssa virus A + B + SARS- CoV-2 (COVI D19) Ag panel , rapid IA, upper respi rator y speci men FLU A negati ve Not Available [address] [place], [address], 02/01/2023 11:37:03 02/02/20 23 02/01/2023 influ allyssa virus A + B + SARS- CoV-2 (COVI D19) Ag panel , rapid IA, upper respi rator y speci men FLU B negati ve Not Available [address] [place], [address], 02/01/2023 11:37:03 02/02/20 23 02/01/2023 influ allyssa virus A + B + SARS- CoV-2 (COVI D19) Ag panel , rapid IA, upper respi rator y speci men SARS COV + SARS OV 2 negati ve Not Available [address] [place], [address], 02/01/2023 11:37:03 Result Notes None recorded. Problems Name Problem SNOMED Code Status Onset Date Resolution Date Notes Provider Name and Address Organization Details Recorded Time Obesity 492502335 Active 2021 Sy Herman DNP, APRN, TOMOGRAPHY TECHNOLOGIST-C [address], [place], [address] , [facility] & [place] 2 08:20:46 Disorder of function of stomach 445702380 Active 2021 Sy Herman DNP, APRN, TOMOGRAPHY TECHNOLOGIST-C [address], [place], [address] , [facility] & [place] 2 08:20:53 Elevated blood-pres sure reading without diagnosis of hypertensi on 865635199 Active 2021 Sy Herman DNP, APRN, TOMOGRAPHY TECHNOLOGIST-C [address], [place], [address] , [facility] & [place] 2 14:27:03 Unintentio nal weight gain 7946717230444 04 Active 2021 yS Herman DNP, APRN, TOMOGRAPHY TECHNOLOGIST-C [address], [address] & [place] 14:27:12 Notes:pseudotumor Problem Notes None recorded. Procedures Surgical History Date Name Laterality Status Provider Name and Address Organization Details Recorded Time 05/27/19 08 Appendectomy completed Sy Herman, VANI, YARN WINDER, TOMOGRAPHY TECHNOLOGIST-C [address], [address] & [place] 04/05/2022 12:16:59 cholecystectomy completed Sy Dumont, VANI, YARN WINDER, TOMOGRAPHY TECHNOLOGIST-C [address], [address] & [place] 04/05/2022 12:16:27 section completed Sy Herman, VANI, YARN WINDER, TOMOGRAPHY TECHNOLOGIST-C [address], [address] & [place] 04/05/2022 12:16:19 lumbar puncture completed Sy Dumont, VANI, YARN WINDER, TOMOGRAPHY TECHNOLOGIST-C [address] , [address] & [place] 04/05/2022 12:16:48 extraction of wisdom tooth completed Fouzia Carrillo [facility] & [place] 04/03/2022 12:44:07 Imaging Results None recorded. Procedure Notes None recorded. Medical Equipment None Reported. Allergies No known drug allergies Medications Name Sig Start Date Stop Date Status Note LastModified by Organization Details LastModified Time phentermine 37.5 mg tablet TAKE 1 TABLET BY MOUTH ONCE DAILY, MUST ADMINISTE R 30 MINUTES BEFORE OR 1-2 HOURS AFTER BREAKFAST . active Not Available Not Available No t Available ketorolac 10 mg tablet TAKE 1 TABLET BY MOUTH EVERY 6 HOURS active Not Available Not Available No t Available erythromyci n 5 mg/gram (0.5 %) eye ointment APPLY 1 CM RIBBON INTO THE LOWER CONJUNCTI VIVIAN SCA(S) IN THE AFFECTED EYE(S) 3 TIMES PER DAY FOR 10 DAYS. active Not Available Not Available No t Available ergocalcife rol (vitamin D2) 1,250 mcg (50,000 unit) capsule TAKE 1 CAPSULE BY MOUTH ONCE A WEEK active Not Available Not Available No t Available dexamethaso ne 0.5 mg tablet TAKE 1 TABLET BY MOUTH THREE TIMES DAILY active Not Available Not Available No t Available Vitamin D3 25 mcg (1,000 unit) capsule TAKE 1 CAPSULE BY MOUTH ONCE DAILY active Not Available Not Available No t Available FeroSul 325 mg (65 mg iron) tablet TAKE 1 TABLET BY MOUTH ONCE DAILY active Not Available Not Available No t Available Vraylar 1.5 mg capsule TAKE 1 CAPSULE BY MOUTH ONCE DAILY active Not Available Not Available No t Available [facility] COVID-19 Antigen Rapid Home Test kit 02/01 completed Not Available Not Available Not Available Caplyta 21 mg capsule TAKE 1 CAPSULE BY MOUTH ONCE DAILY active Not Available Not Available No t Available Vitals Date Recorded Body height Body mass index (BMI) Body weight Body temperature Oxygen saturation Oxygen saturation in Arterial blood by Pulse oximetry Heart rate Respiratory rate Systolic blood pressure Diastolic blood pressure Provider Name and Address Organization Details Last Updated DateTime 3 154.94 cm 64.8 kg/m2 381830. 18 g 98.1 [degF] 99 % 99 % 90 /min 18 /min 145 mm[Hg] 90 mm[Hg] Nilesh soto [facility] & [place] 3 08:40:49 Date Recorded Body height Body mass index (BMI) Body weight Body temperature Oxygen saturation Oxygen saturation in Arterial blood by Pulse oximetry Heart rate Respiratory rate Provider Name and Address Organization Details Last Updated DateTime 3 154.94 cm 64.8 kg/m2 435201. 18 g 98.2 [degF] 99 % 99 % 83 /min 18 /min Joseph Lopez [facility] & [place] 3 09:16:40 Date Recorded Body height Body mass index (BMI) Body weight Body temperature Heart rate Systolic blood pressure Diastolic blood pressure Provider Name and Address Organization Details Last Updated DateTime 2 154.94 cm 61.8 kg/m2 931076. 42 g 96.9 [degF] 97 /min 159 mm[Hg] 94 mm[Hg] Theron coombs [facility] & [place] 08:38:12 Social History None recorded. Functional Status Question Answer Note LastModified by Organizat ion Details LastModified Time Do you use any illicit or recreational drugs? No [email or web address] Information not available 04/03/2022 What is your level of alcohol consumption? None [email or web address] Information not available 04/03/2022 Mental Status None recorded. Family History Relationship Description Onset Age of this Age Resolved Age Notes LastModified by Organization Details LastModified Time Brother Obese [email or web address] Not available 02/01/2023 08:25:28 Brother Hypertensive disorder [email or web address] Not available 12/2021 12:41:17 Brother Sleep disorder [email or web address] Not available 12/2021 12:41:30 Brother Asthma [email or web address] Not available 02/01/2023 08:25:28 Mother Obese [email or web address] Not available 02/01/2023 08:25:28 Mother Diabetes mellitus [email or web address] Not available 2022 08:25:28 Mother Hypertensive disorder [email or web address] Not available 12/2021 12:41:17 Mother Sleep disorder [email or web address] Not available 12/2021 12:41:30 Maternal Grandmother Obese Not available 12/2022 08:25:28 Maternal Grandmother Diabetes mellitus [email or web address] Not available 2022 08:25:28 Maternal Grandfather Chronic obstructive pulmonary disease [email or web address] Not available 12/2021 12:41:49 Medical History Condition Response Depression Y Headaches Y Mental Illness Y Gynecological HistoryNo gynecological history recorded. Obstetrics History GPAL:G 0 P 0 0 0 0 Past Encounters Encounter ID Performer Location Encounter Start Date Encounter Closed Date Diagnosis/Indication Diagnosis SNOMED-CT Code Diagnosis ICD10 Code Diagnosis Note [id number] Sy Herman, DNP, YARN WINDER, TOMOGRAPHY TECHNOLOGIST-C [facility] Bariatric s and Adv Surg [address] [facility] [address] [place] [address] 04/05/2022 08:35:53 04/05/2022 12:35:26 Obesity 884455268 E66.9 The patient will be scheduled for the following. Initial intake lab work, cardiac clearance, and EGD. All risks complicati ons and alternativ es of the upper endoscopy were discussed with the patient and agreed upon. These include but are not limited to, over sedation, bleeding, perforatio n.Patient will be educated by the surgical weight loss team regarding if any medical managed weight loss will be required and they will follow this according to their recommenda tions.fernanda ent will follow-up in office after all testing has been completed. We discussed candidly options of Demetria-en-Y gastric bypass. Patient would like to proceed with sleeve at this time. Disorder o f function of stomach 547201438 K31.89 Elevated blood-pressure reading without diagnosis of hypertension 112001299 R03.0 Unintentio nal weight gain 8316765811 43456 R63.5 [id number] Dorothy Carnes APRN [address] [place] [address] 02/01/2023 08:25:04 02/01/2023 09:03:47 Exposure to SARS-CoV-2 251231345 Z20.822 R05.1 R51.9 R68.83 Patient presented with symptoms of upper respirator y infection. Advised to drink plenty of fluids, run a cool-mist humidifier in room at night, gargle salt water for sore throat, and get plenty of rest. Patient should avoid over-exert ion and reduce exposure to irritants such as smoke, cold, dry air, and dust. Treatment currently involves symptomati c relief. Patient may take acetaminop hen or ibuprofen as directed to reduce fever and body aches. Antihistam ine and decongesta nt usage was discussed and recommenda tions made. Patient understood these instructio ns and will follow up in the office in 10 days to 2 weeks if symptoms not improving. [id number] Ronald Jarvis MD [place] [address] [facility] [place] [address] 03/28/2023 08:58:29 03/28/2023 09:32:29 Blepharitis of right eyelid 7909351014 25002 H01.003 Blephariti s of both upper and lower right eyelids. We will treat with antibiotic ointment for 10 days. If symptoms keep recurring recommend evaluation by ophthalmol ogist. Health Concerns Section Related Observation LastModified by Organization Detai ls LastModified Time None Recorded Concern Status LastModified by Organization Details LastModified Time None Recorded Advance Directives Directive None Recorded Payers Insurance Date Sequence Insurance Name Policy Number Policy Wilkinson Covered Member ID Wilkinson Member ID Guarantor Name 12/14/2023 1 [place] [id number] Natacha Morales [id number] 2 Natacha Morales 12/14/2023 1 [employer] [place] (MEDICA[place] HMO) Natacha Morales [id number] Natacha Morales Notes Date Note Type Note Provider Name and Address Organization Details Recorded Time 04/05/2022 text/html Patient presents today for the initial evaluation with an interest in bariatric surgery. Patients first choice for bariatric surgery is sleevePt has been overweight most of their life. Has been 100lbs or more over weight for 10 years. Pt reports dyspnea joint pain and mobility issues related to excess weight.The pt is pursuing weight loss surgery because excess weight directly contributes to comorbidities including Elevated blood pressure without a diagnosis of hypertensionDiets include calorie counting high protein/low carb diet. Pt site physical hunger and boredom as prompts to eat. Struggles with portion size.Patient is a previous smoker of a pack and half a day times 17 years. She quit smoking 127 days ago.DIET HX:The patient states that they have been overweight since adolescenceThe patient states that they have been 100 lbs or more overweight many years.The patient started dieting at the age of 27Dieting methods that have been most successful in losing weight are adipexThe most weight ever lost on a single dieting attempt was 13lbs and this was maintained until 3 monthsThe patient has attempted the following unsupervised diet attempts supplementsThe Patient has followed the following supervised diet attempts supervisedThe following OTC or prescribed medications have been utilized for weight loss adipexBehavior treatments for weight loss that have been attempted in the past were noneThe patient has utilized the following modes of exercise to help with weight loss walkingThe patient has not use self induced behaviors to help them lose weight in the past.Currently the patient admits to an eating history of eating large meals at one sitting, skipping meals, snacking in the day and evening and late at night.The patient feels that the majority of their meals are prepared at home.Common triggers for causing the patient to overeat are anxiousness, helps me handle stress. Sy Herman, DNP, YARN WINDER, TOMOGRAPHY TECHNOLOGIST-C [address] [facility], [place], [address], [facility] & [place] 04/05/2022 14:28:44 02/01/2023 text/html COVID-19 Symptom s September 2019Reported bypatient.COVID-19 Signs and Symptomscough worsening; fever resolved; shortness of breath resolved;chills worsening; repeated shaking with chills resolved; muscle pain resolved;headache worsening; sore throat resolved; loss of taste or smell resolved; vomiting or diarrhea resolved; fatigue resolved; anorexia resolved Contacts and Exposureclose contact with a confirmed or suspected case of COVID-19 Quality:dry cough Severity:moderate Duration:symptoms lasting 1 days Associated Symptoms:no sputum production; no wheezing; no vomiting; no diarrhea; no nausea; no change in mental status; no hypotension; no tachycardia;fatigue; runny nose;body aches Prior Labs and ImagingCOVID-19 nasopharyngeal swab 33 y/o female that presents to the clinic for URI symptoms. Dorothy Carnes APRN [address] [place] [address], [phone], [facility] 02/01/2023 11:38:06 03/28/2023 text/html 33-year-old fema le seen for acute visit. Patient has had intermittent problems with her right eye lids swelling and redness. This is been going on intermittently for weeks. She denies any injury to the eye or foreign body. She does feel that the eyelid is swollen and tender. Patient does not wear contacts. The left eye is normal. Ronald Jarvis MD [address] [place], [address], [facility] & [place] 03/28/2023 09:27:06 OBGyn Episode No OBEpisode recorded.
--- OUTSIDE RECORDS SUMMARY | 2024-10-17 00:07 | XMS_ITS | Continuity of Care Document ---
Author Organization [facility] Phone Care Team Providers Care Awning Hanger Supervisor Name Role Phone MARIO MORIN Admitting Cole ANGEL Primary Care MARIO MORIN Unavailable MARIO MORIN Primary Attending ALLERGIES AND ADVERSE REACTIONS ALLERGIES AND ADVERSE REACTIONS Code System Allergy Substance Adverse Reaction Date Reaction (Severity) Comment Status Reported By Updated By No Known Allergies [id number] on October 12, 2024 8:19:21 PM [facility] RESULTS Patient: ZACHARY AUGUSTIN RE NEE Date of : [birth year] LABORATORY RESULTS Information is not available LABORATORY NARRATIVE RESULTS Information is not available RADIOLOGY RESULTS ORDER 100: KNEE 3V LT (LOINC : 85389-2) ORDER DATE: October 12, 2024 8:13:00 PM [facility] PERFORMING LAB: [address] [id number] Final Result Date: October 12 8:21:20 PM [address] [place] [address] Name: DEMETRIA SHARMA Exam Date: 10/12/2024 : 1990 Age 34 years Gender: F Physician: Facility: [facility] Facility HSV: Outpatient Exam: KNEE 3V LT EXAM DESCRIPTION: KNEE 3V LT Date: 10/12/2024 3:21 PM CDT CLINICAL HISTORY: 34 years Female, Pain without Trauma/Injury COMPARISON: None available. TECHNIQUE: 3 views FINDINGS: Tiny patellofemoral marginal osteophytes are present. No joint effusion or fracture is identified. Minimal lateral compartment osteophytosis is present. IMPRESSION: 1. Early osteoarthritic changes without acute osseous abnormality identified. Electronically signed by: Santos Vivas MD 10/12/2024 05:08 PM EDT RP Dictated By: Santos Vivas Transcribed By: Transcribed On: 10/12/2024 4:21 PM Electronically signed by: Santos Vivas 10/12/2024 Thank you for referring DEMETRIA SHARMA to [facility]. Legally authenticated by IMELDA VALDES MD 2024-10-12 16:21:20 PATHOLOGY NARRATIVE RESULTS Information is not available MICROBIOLOGY RESULTS No Micro Labs/Results Exist for Patient BLOOD ADMIN RESULTS Information is not available MEDICATIONS HOME MEDICATIONS Status RXNORM NDC Medication Dose Route Frequency Dates Comments Reported By Updated By Active [id number] metformin 500 mg tablet 1.0 TAB ORAL DAILY Last Dose: [id number] on October 12, 2024 8:19:26 PM [facility] Active 304000 457030 01242 lorazepam 2 mg tablet 1.0 TAB ORAL PRN Last Dose: [id number] on October 12, 2024 8:19:27 PM [facility] Active 159044 227476 33422 propranolol 10 mg tablet 1.0 TAB ORAL BID Last Dose: [id number] on October 12, 2024 8:19:27 PM [facility] DISCHARGE MEDICATIONS Status RXNORM NDC Medication Dose Route Frequency Dates Comments Physician Updated By No Discharge Medication Info rmation Available INPATIENT MEDICATIONS Status RXNORM NDC Medication Dose Route Frequency Rat e Quantity Dates Comments Physician Updated By No Inpatient Medication Info rmation Available SOCIAL HISTORY SOCIAL HISTORY SNOMED-CT Social History Element Description Effective Dates Offered Cessation Comment UpdatedBy [id number] Current Tobacco smoking status Current Every Day Smoker [id number] on October 12, 2024 8:20:05 PM [facility] SOCIAL HISTORY - Gender Sex: Female SOCIAL HISTORY - Status : status i nformation is not available Intention in Next Year: intention information is not available SOCIAL HISTORY - Sexual Behavior Sexual Orientation Gender Identity SNOMED-CT Description SNO MED -CT Description Activity Level No of Partners Partner Type UpdatedBy Information is not available VITAL SIGNS PATIENT VITAL SIGNS This section displays the mo st recent value for each vital sign as of October 14, 2024 7:33:47 AM [facility] Loinc Code Vital Sign Activity Date Result Updated By 8310-5 Body temperature October 12, 2024 8:13:21 PM UTC 98.3 [degF] [id number] on October 13, 2024 8:44:[place] [address]-3 Body weight Measured October 12 8:16:02 PM UTC 175.0 kg (386.0 lb) [id number] on October 12, 2024 8:16:02 PM [place] 8462-4 Diastolic blood pressure October 12, 2024 8:43:12 PM UTC 91.0 mm[Hg] [id number] on October 13, 2024 8:44:07 PM UTC 8867-4 Heart rate October 12, 2024 8:43:12 PM UTC 87 /min [id number] on October 13, 2024 8:44:[place] [address]-8 Oxygen saturation in Arterial blood by Pulse oximetry October 12, 2024 8:43:12 PM UTC 100.0 % [id number] on October 13, 2024 8:44:07 PM [place] 9279-1 Respiratory rate October 12, 2024 8:13:21 PM UTC 20 /min [id number] on October 13, 2024 8:44:06 PM UTC 8480-6 Systolic blood pressure October 12, 2024 8:43:12 PM UTC 159.0 mm[Hg] [id number] on October 13, 2024 8:44:07 PM [place] PEDIATRIC GROWTH CHART - VITAL SIGNS This section displays Head C ircumference Percentile, Weight for Length Percentile and BMI Percentile Loinc Code Pediatric Measure Age (Months) Result Updat ed By No Pediatric Growth Chart Pe rcentile Information Available. HEALTH CONCERNS Problems Concern Status Health Concern problem infor mation not available. Smoking Status Status Years Used Consumed packs p er day Health Concern smoking histo ry information not available. Family History Concern Status Health Concern family histor y information not available. ENCOUNTERS ENCOUNTER INFORMATION Reason for Visit KNEE PAIN Admission October 12, 2024 8:01:[address] [id number] Discharge October 12, 2024 8:43:00 PM [place] DISC HARGED TO HOME OR SELF CARE ENCOUNTER DIAGNOSES Notes information is not yu ilable. Code System Diagnosis Onset Date Diagnosis information is not available. ABSTRACT DIAGNOSES Code System Diagnosis Updated By M25.562 ICD10 PAIN IN LEFT KNEE [id number] on October 14, 2024 7:33:28 AM [place] M25.562 ICD10 PAIN IN LEFT KNEE [id number] on October 14, 2024 7:33:28 AM [place] F31.9 ICD10 BIPOLAR DISORDER, UNSPECIFIE D [id number] on October 14, 2024 7:33:28 AM UTC E11.9 ICD10 TYPE 2 DIABETES MELLITUS WITHOUT COMPLICATIONS [id number] on October 14, 2024 7:33:28 AM [place] F17.290 ICD10 NICOTINE DEPENDE NCE, OTHER TOBACCO PRODUCT, UNCOMPLICATED [id number] on October 14, 2024 7:33:28 AM [place] Z79.84 ICD10 MCC (CURRE NT) USE OF ORAL HYPOGLYCEMIC DRUGS [id number] on October 14, 2024 7:33:28 AM [place] Z79.899 ICD10 OTHER MCC (CURRENT) DR UG THERAPY [id number] on October 14, 2024 7:33:28 AM [facility] CARE TEAM Care Awning Hanger Supervisor Role MARIO MORIN Admitting Cole ANGEL Primary Care MARIO MORIN Referring MARIO MORIN Primary Attending CARE TEAM CARE fireman helper Role on Team Status Start Date End Date Update d By PATIENCE MARTIN MD Referring normal October 12, 2024 8:21:40 PM [facility] October 12, 2024 8:43:00 PM [facility] [id number] on October 12, 2024 8:21:40 PM [facility] PATIENCE MARTIN MD Attending normal October 12, 2024 8:21:40 PM [facility] October 12, 2024 8:43:00 PM [facility] [id number] on October 12, 2024 8:21:40 PM [facility] PATIENCE MARTIN MD Admitting normal October 12, 2024 8:21:40 PM [facility] October 12, 2024 8:43:00 PM [facility] [id number] on October 12, 2024 8:21:40 PM [facility] JEANNE KRAUS PCP normal October 12 8:01:38 PM [facility] October 12, 2024 8:43:00 PM [facility] [id number] on October 12, 2024 8:21:40 PM [facility]
--- OUTSIDE RECORDS SUMMARY | 2024-10-17 00:07 | XMS_ITS | Data Portability ---
Author Organization [facility] Address [address] [place] [address] Care Team Providers Care Hand Ironer Name Role Phone ENRIQUEION Primary Care Provider Assessment Encounter Date Assessment Date Assessment LastModified by Organization Details LastModified Time 04/28/2020 04/28/2020 We discussed the diagnosis of overactive bladder. We discussed need to avoid bladder irritants. Trial of trospium. Not available 05/01/2020 21:33:15 06/09/2020 06/09/2020 We reviewed the diagnosis of overactive bladder with irritative voiding symptoms. She wishes to try another medication. We briefly discussed potential procedure options if medications felt to improve symptoms. Not available 06/09/2020 13:36:14 Plan of Treatment Reminders Order Date Submit Date Provider Last Modified By Organization Details Last Modified Time Details Appointments None recorded. Lab urinalysis panel, auto 2020 021 [email or web address] 14 [facility] Extended Services With [address], [place], [address], 1 21:55:07 urinalysis panel, auto 2019 020 [email or web address] 14 [facility] Extended Services With [address], [place], [address], 0 21:33:15 Referral None recorded. Procedures None recorded. Surgeries None recorded. Imaging None recorded. Medication Orders Rentriq 50 mg tablet,exte nded release 2020 021 [email or web address] 14 [facility] [address] [place], [address], 21:54:54 trospium 20 mg tablet 2019 020 [email or web address] 14 [facility] [address] [place], [address], 0 21:32:09 Patient TargetsNo targets recorded. Patient Instructions Encounter Date Encounter Id Patient Instructions Last Modified By Organization Details Last Modified Time 06/09/2020 [id number] frequent urination: care instructions [email or web address] Not available 06/09/2020 13:35:48 Reason for Referral None Reported. Results Created Date Observation Date Name Description Value Unit Range Abnormal Flag Note LastModifiedBy Organization Detail LastModifiedTime 06/09/1906/09/2020 urina lysis panel , auto Unknown Analyte Clean Catch Not Available [facility] [address], [place], [address], 06/09/2020 13:37:31 06/09/19 21 06/09/2020 urina lysis panel , auto Unknown Analyte Yellow Not Available [facility] Extended Services With [address] [place], [address], 06/09/2020 13:37:31 06/09/19 21 06/09/2020 urina lysis panel , auto Unknown Analyte Clear Not Available [facility] Extended Services With [address] [place], [address], 06/09/2020 13:37:31 06/09/19 21 06/09/2020 urina lysis panel , auto Unknown Analyte 1.015 Not Available [facility] Extended Services With [address] [place], [address], 06/09/2020 13:37:31 06/09/19 21 06/09/2020 urina lysis panel , auto Unknown Analyte 1.003- 1.035 Not Available [facility] Extended Services With [address], [place], [address], 06/09/2020 13:37:31 06/09/19 21 06/09/2020 urina lysis panel , auto Unknown Analyte 5.0 Not Available [facility] Extended Services With [address], [place], [address], 06/09/2020 13:37:31 06/09/19 21 06/09/2020 urina lysis panel , auto Unknown Analyte 5.0-8. 0 Not Available [facility] Extended Services With [address], [place], [address], 06/09/2020 13:37:31 06/09/19 21 06/09/2020 urina lysis panel , auto Unknown Analyte Negati ve Not Available [facility] Extended Services With [address], [place], [address], 06/09/2020 13:37:31 06/09/19 21 06/09/2020 urina lysis panel , auto Unknown Analyte Negati ve Not Available [facility] Extended Services With [address], [place], [address], 06/09/2020 13:37:31 06/09/19 21 06/09/2020 urina lysis panel , auto Unknown Analyte Negati ve Not Available [facility] Extended Services With [address], [place], [address], 06/09/2020 13:37:31 06/09/19 21 06/09/2020 urina lysis panel , auto Unknown Analyte Negati ve Not Available [facility] With [address] [place], [address], 06/09/2020 13:37:31 06/09/19 21 06/09/2020 urina lysis panel , auto Unknown Analyte Negati ve Not Available [facility] Extended Services With [address] [place], [address], 06/09/2020 13:37:31 06/09/19 21 06/09/2020 urina lysis panel , auto Unknown Analyte Negati ve Not Available [facility] Extended Services With [address] [place], [address], 06/09/2020 13:37:31 06/09/19 21 06/09/2020 urina lysis panel , auto Unknown Analyte Normal Not Available [facility] Extended Services With [address] [place], [address], 06/09/2020 13:37:31 06/09/19 21 06/09/2020 urina lysis panel , auto Unknown Analyte Normal Not Available [facility] Extended Services With [address] [place], [address], 06/09/2020 13:37:31 06/09/19 21 06/09/2020 urina lysis panel , auto Unknown Analyte Negati ve Not Available [facility] Extended Services With [address] [place], [address], 06/09/2020 13:37:31 06/09/19 21 06/09/2020 urina lysis panel , auto Unknown Analyte Negati ve Not Available [facility] Extended Services With [address] [place], [address], 06/09/2020 13:37:31 06/09/19 21 06/09/2020 urina lysis panel , auto Unknown Analyte 1 mg/dl Not Available [facility] With [address], [place], [address], 06/09/2020 13:37:31 06/09/19 21 06/09/2020 urina lysis panel , auto Unknown Analyte Normal 1 mg/dl Not Available [facility] Extended Services With [address], [place], [address], 06/09/2020 13:37:31 06/09/19 21 06/09/2020 urina lysis panel , auto Unknown Analyte Negati ve Not Available [facility] Extended Services With [address] [place], [address], 06/09/2020 13:37:31 06/09/19 21 06/09/2020 urina lysis panel , auto Unknown Analyte Negati ve Not Available [facility] Extended Services With [address], [place], [address], 06/09/2020 13:37:31 06/09/19 21 06/09/2020 urina lysis panel , auto Unknown Analyte 250 Lj/ul Not Available [facility] Extended Services With [address], [place], [address], 06/09/2020 13:37:31 06/09/19 21 06/09/2020 urina lysis panel , auto Unknown Analyte Negati ve Not Available [facility] Extended Services With [address] [place], [address], 06/09/2020 13:37:31 04/28/20 20 04/28/2020 urina lysis panel , auto Unknown Analyte Clean Catch Not Available [facility] Extended Services With [address], [place], [address], 04/28/2020 18:04:09 04/28/20 20 04/28/2020 urina lysis panel , auto Unknown Analyte Yellow Not Available [facility] Extended Services With [address], [place], [address], 04/28/2020 18:04:09 04/28/20 20 04/28/2020 urina lysis panel , auto Unknown Analyte Clear Not Available [facility] Extended Services With [address], [place], [address], 04/28/2020 18:04:09 04/28/20 20 04/28/2020 urina lysis panel , auto Unknown Analyte 1.015 Not Available [facility] Extended Services With [address] [place], [address], 04/28/2020 18:04:09 04/28/20 20 04/28/2020 urina lysis panel , auto Unknown Analyte 1.003- 1.035 Not Available [facility] Extended Services With [address], [place], [address], 04/28/2020 18:04:09 04/28/20 20 04/28/2020 urina lysis panel , auto Unknown Analyte 6.5 Not Available [facility] Extended Services With [address] [place], [address], 04/28/2020 18:04:09 04/28/20 20 04/28/2020 urina lysis panel , auto Unknown Analyte 5.0-8. 0 Not Available [facility] Extended Services With [address] [place], [address], 04/28/2020 18:04:09 04/28/20 20 04/28/2020 urina lysis panel , auto Unknown Analyte Negati ve Not Available [facility] Extended Services With [address] [place], [address], 04/28/2020 18:04:09 04/28/20 20 04/28/2020 urina lysis panel , auto Unknown Analyte Negati ve Not Available [facility] Extended Services With [address] [place], [address], 04/28/2020 18:04:09 04/28/20 20 04/28/2020 urina lysis panel , auto Unknown Analyte Negati ve Not Available [facility] Extended Services With [address] [place], [address], 04/28/2020 18:04:09 04/28/20 20 04/28/2020 urina lysis panel , auto Unknown Analyte Negati ve Not Available [facility] Extended Services With [address] [place], [address], 04/28/2020 18:04:09 04/28/20 20 04/28/2020 urina lysis panel , auto Unknown Analyte Negati ve Not Available [facility] Extended Services With [address] [place], [address], 04/28/2020 18:04:09 04/28/20 20 04/28/2020 urina lysis panel , auto Unknown Analyte Negati ve Not Available [facility] Extended Services With [address] [place], [address], 04/28/2020 18:04:09 04/28/2004/28/2020 urina lysis panel , auto Unknown Analyte Normal Not Available [facility] Extended Services With [address] [place], [address], 04/28/2020 18:04:09 04/28/20 20 04/28/2020 urina lysis panel , auto Unknown Analyte Normal Not Available [facility] Extended Services With [address], [place], [address], 04/28/2020 18:04:09 04/28/20 20 04/28/2020 urina lysis panel , auto Unknown Analyte Negati ve Not Available [facility] Extended Services With [address] [place], [address], 04/28/2020 18:04:09 04/28/20 20 04/28/2020 urina lysis panel , auto Unknown Analyte Negati ve Not Available [facility] Extended Services With [address] [place], [address], 04/28/2020 18:04:09 04/28/20 20 04/28/2020 urina lysis panel , auto Unknown Analyte Normal Not Available [facility] Extended Services With [address] [place], [address], 04/28/2020 18:04:09 04/28/20 20 04/28/2020 urina lysis panel , auto Unknown Analyte Normal 1 mg/dl Not Available [facility] Extended Services With [address] [place], [address], 04/28/2020 18:04:09 04/28/20 20 04/28/2020 urina lysis panel , auto Unknown Analyte Negati ve Not Available [facility] Extended Services With [address] [place], [address], 04/28/2020 18:04:09 04/28/20 20 04/28/2020 urina lysis panel , auto Unknown Analyte Negati ve Not Available [facility] Extended Services With [address] [place], [address], 04/28/2020 18:04:09 04/28/20 20 04/28/2020 urina lysis panel , auto Unknown Analyte Negati ve Not Available [facility] Services With [address], [place], [address], 04/28/2020 18:04:09 04/28/20 20 04/28/2020 urina lysis panel , auto Unknown Analyte Negati ve Not Available [facility] Extended Services With [address], [place], [address], 04/28/2020 18:04:09 Result Notes None recorded. Procedures Surgical History Date Name Laterality Status Provider Name and Address Organization Details Recorded Time Caesarean Section completed Ifeoma [facility] 01/08/2017 10:07:59 Appendectomy completed Ifeoma [facility] 01/08/2017 10:08:05 D&c of cervical stump completed Muralfredo [facility] 04/28/2020 18:02:39 Imaging Results None recorded. Procedure Notes None recorded. Medical Equipment None Reported. Allergies No known drug allergies Medications Name Sig Start Date Stop Date Status Note LastModified by Organization Details LastModified Time Wellbutrin XL 150 mg 24 hr tablet, extended release Take 1 tablet every day by oral route. active Not Available Not Available No t Available trospium 20 mg tablet Take 1 tablet twice a day by oral route for 90 days. 020 active Not Available Not Available Not Avai lable Adipex-P active Not Available Not Avai lable Not Available BuSpar active Not Available Not Availa ble Not Available Wellbutrin SR active Not Available Not Available Not Available Topamax active Not Available Not Avail able Not Available Myrbetriq 50 mg tablet,exten ded release Take 1 tablet every day by oral route for 30 days. 021 active Not Available Not Available Not Avai lable Vitals Date Recorded Body height Body mass index (BMI) Body weight Body temperature Provider Name and Address Organization Details Last Updated DateTime 04/28/2020 154.94 cm 57.8 kg/m2 382664.27 g 97 [degF] Queta Stoner [facility] 04/28/2020 18:00:35 Date Recorded Body height Body mass index (BMI) Body weight Body temperature Provider Name and Address Organization Details Last Updated DateTime 06/09/2020 154.94 cm 57.8 kg/m2 357725.27 g 98.2 [degF] Deseriee Simpson [facility] 06/09/2020 13:37:03 Social History Question Answer Notes LastModified by [employer] Details LastModified Time Tobacco Smoking Status Current Every Day Smoker SMOKER FOR 10 YEARS Ifeoma [facility], [facility] 01/08/2017 10:09:51 Marital Status Single [email or web address] Information not available 04/28/2020 What Was The Date Of Your Most Recent Tobacco Screening? 01/08/2017 [id number] Information not available 07/14/2019 How Much Tobacco Do You Smoke? 1 PPD [email or web address] Information not available 01/08/2017 Sex: Unknown Functional Status Question Answer Note LastModified by [employer] Details LastModified Time What is your level of alcohol consumption? Occasional [email or web address] Information not available 01/08/2017 Mental Status None recorded. Family History Relationship Description Onset Age of this Age Resolved Age Notes LastModified by Organization Details LastModified Time Mother Diabetes mellitus [email or web address] Not available 2019 18:01:51 Unspecified Relation Family history of malignant neoplasm [email or web address] Not available 2019 18:02:02 Medical History Condition Response Depression Y Anxiety Disorder Y Sleep Apnea Y Gynecological HistoryNo gynecological history recorded. Obstetrics History GPAL:G 0 P 0 0 0 0 Past Encounters Encounter ID Performer Location Encounter Start Date Encounter Closed Date Diagnosis/Indication Diagnosis SNOMED-CT Code Diagnosis ICD10 Code Diagnosis Note [id number] [facility] [address] [address] 04/28/2020 15:09:13 04/29/2020 11:12:47 Overactive urinary bladder 932745154 N32.81 [id number] MD [facility] [address] [address] 06/09/2020 13:10:38 06/10/2020 08:11:03 Urgent desire to urinate 33762685 R39.15 Increased frequency of urination 884574092 R35.0 Health Concerns Section Related Observation LastModified by Organization Detai ls LastModified Time None Recorded Concern Status LastModified by Organization Details LastModified Time None Recorded Advance Directives Directive None Recorded Payers Insurance Date Sequence Insurance Name Policy Number Policy Wilkinson Covered Member ID Wilkinson Member ID Guarantor Name 06/06/2020 1 [place] [id number] Natacah Morales [id number] Natacha Morales Notes Date Note Type Note Provider Name and Address Organization Details Recorded Time 04/28/2020 text/html 30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 She has taken oxybutynin and Toviaz in the past. She voids with frequency less than hourly to hourly. She has nocturia twice nightly. She denies hesitancy but reports urinary urgency. No gross hematuria or dysuria. 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 She had taken oxybutynin and Toviaz prior to initial office encounter without clinical improvement. Last month I tried her on trospium which again did not help with her lower urinary symptoms. He continues to void with frequency of approximately every 1 hour with nocturia at least twice nightly. She denies hesitancy. She reports urgency. No gross hematuria or dysuria. JUANJO NUNEZ MD [address] [place] [address], [address], [facility] 06/09/2020 21:55:35 OBGyn Episode No OBEpisode recorded.
--- NOTE | 2024-10-17 00:10 | XR_ITS ---
PROCEDURE INFORMATION: Exam: XR Left Knee Exam date and time: 10/17/2024 12:38 AM Age: 34 years old Clinical indication: Pain; Knee; Left; Additional info: One week knee pain TECHNIQUE: Imaging protocol: Radiologic exam of the left knee. Views: 3 views. COMPARISON: No relevant prior studies available. FINDINGS: Bones/joints: Osseous alignment is normal. No acute fracture. No significant arthritic change. Soft tissues: Normal. IMPRESSION: Negative left knee
[2024-10-17 00:12] VITALS: BP 152/87; PULSE 83; RESP 20; TEMP 37.2; O2SAT 98
[2024-10-17] MEDS: ACETAMINOPHEN 500MG TAB 1000 MG PO (00:28)
[2024-10-17 00:29] LABS: Basophils % 0.1 % (0.1-2.0); Eosinophils % 0.2 % (0.1-12.0); Hematocrit 35.1 % (37.0-47.0); Hemoglobin 11.4 g/dL (12.2-16.2); Immature Granulocytes # 0.02 10^3uL; Immature Granulocytes % 0.2 %; Lymphocytes # 1.9 K/mm3 (0.7-4.5); Lymphocytes % 22.1 % (10-50); Mean Corpuscular HGB Conc 32.5 g/dL (31.8-35.4); Mean Corpuscular Hemoglobin 26.6 pg (27.0-31.2); Monocytes # 0.5 K/mm3 (0.1-1.0); Monocytes % 6.3 % (1.7-9.3); Neutrophils # 6.1 K/mm3 (1.8-7.8); Neutrophils % 71.1 % (37.0-80.0); Nucleated Red Blood Cells # 0 10^3/uL; Nucleated Red Blood Cells % 0 %; Platelet Count 278 K/mm3 (142-424); Red Blood Count 4.28 M/mm3 (4.20-5.40); Red Cell Distribution Width 15.2 % (11.5-17.5); Red Cell Distribution Width-SD 45.2 fL; White Blood Count 8.6 K/mm3 (4.8-10.8)
[2024-10-17 00:32] LABS: Albumin Level 3.9 g/dl (3.5-5.0); Chloride 104 mmol/L (98-107)
[2024-10-17 00:33] LABS: Potassium 3.9 mmoL/L (3.5-5.1)
[2024-10-17 00:35] LABS: Alanine Aminotransferase 54 U/L (12-78); Aspartate Amino Transferase 31 U/L (14-36); Blood Urea Nitrogen 17 mg/dl (7-17); Carbon Dioxide 27 mmol/L (22.0-30.0); Creatinine Clearance Estimated 74 mL/min (50-200); Estimated Glomerular Filt Rate 82 ml/min (>60); GFR (African American) 99 ML/MIN (>60)
[2024-10-17 00:36] LABS: Alkaline Phosphatase 140 U/L (38-126); Bilirubin,Total 0.5 mg/dl (0.2-1.3); Calcium 9.3 mg/dl (8.4-10.2); Globulin 3.9 g/dL (1.3-3.2); Glucose 126 mg/dl (74-100); Total Protein,Serum 7.8 g/dl (6.3-8.2)
[2024-10-17 00:41] LABS: C-Reactive Protein 48.7 mg/L (0-4)
[2024-10-17 00:52] LABS: Microscopic, Urine URINE MICROSCOPIC (MICROSCOPIC)
[2024-10-17 00:52] LABS: Erythrocyte Sedimentation Rate 56 mm/hr (0-20)
[2024-10-17 00:53] LABS: Appearance,Urine CLEAR (Clear); Bilirubin,Urine Negative (Negative); Blood, Urine 2+ (Negative); Color,Urine YELLOW (Yellow); Glucose,Urine (UA) Negative (Negative); Ketones,Urine Negative (Negative); Leukocyte Esterase,Urine Negative (Negative); Nitrate,Urine Negative (Negative); Protein,Urine Negative (Negative); Specific Gravity, Urine 1.025 (1.005-1.030); Urobilinogen,Urine 0.2 EU/dl (0.2)
--- NOTE | 2024-10-17 00:54 | PC.NURSE ---
Lab called to report delay in the Na+ result.
[2024-10-17 01:18] LABS: Mucus,Urine 1+ /lpf
[2024-10-17 01:21] LABS: Amorphous Sediment,Urine 1+ /lpf; Bacteria,Urine 1+ /lpf
[2024-10-17 01:25] LABS: Anion Gap 7.9 mEq/L (5-15); Sodium 135 mmol/L (136-145)
[2024-10-17 01:50] VITALS: BP 149/87; PULSE 88; RESP 18; TEMP 36.3; O2SAT 100
[2024-10-17 02:28] LABS: Uric Acid 7.8 mg/dl (2.5-6.2)
== END 2024-10-17 02:01 | disposition home or self-care (01) ==
PROVIDERS: Emergency Provider Emergency Medicine; PCP Physician Assistant
DX: M25.562 Pain in left knee (principal)
CPT/HCPCS: 73562; 80053; 81001; 84550; 85025; 85651; 86140; 99284